=== PATIENT | female | born 1950 | race Hispanic/Latino ===

== ENCOUNTER 2024-08-07 10:10 | Emergency (ER) | payer OTHER ==
[~2024-08-07] VITALS: Ht 157.5 cm; Wt 49.0 kg
[2024-08-07 11:09] LABS: BASOPHILS # (AUTO) 0.03 K/uL (0.00-0.20); BASOPHILS % (AUTO) 0.6 % (0.0-5.0); EOSINOPHILS # (AUTO) 0.06 K/uL (0.00-0.70); EOSINOPHILS % (AUTO) 1.2 % (0.0-8.0); HEMATOCRIT 38.1 % (36-48); IMMATURE GRANULOCYTE ABSOLUTE 0.02 K/uL (0-1); LYMPHOCYTES # (AUTO) 1.4 K/uL (1.0-4.8); LYMPHOCYTES % (AUTO) 27.4 % (21.0-51.0); MEAN CORPUSCULAR HEMOGLOBIN 33.2 pg (27.0-33.0); MEAN CORPUSCULAR HGB CONC 34.1 g/dL (32.0-36.0); MEAN CORPUSCULAR VOLUME 97.4 fL (79-99); MONOCYTES # (AUTO) 0.4 K/uL (0.1-1.0); MONOCYTES % (AUTO) 8.7 % (3.0-13.0); NEUTROPHILS # (AUTO) 3.1 K/uL (1.8-7.7); NEUTROPHILS % (AUTO) 61.7 % (40.0-77.0); PLATELET COUNT (AUTO) 225 K/uL (130-400); RED BLOOD CELL COUNT(AUTO) 3.91 MIL/uL (4.00-5.50); WHITE BLOOD COUNT (AUTO) 5.1 K/uL (4.8-10.8)
[2024-08-07 11:26] LABS: CREATININE 0.7 mg/dL (0.5-1.0); POTASSIUM 4.7 mmol/L (3.5-5.1)
[2024-08-07 11:31] VITALS: BP 154/85; PULSE 77; RESP 18; TEMP 98.3; O2SAT 99
--- NOTE | 2024-08-07 12:01 | HMCIMG ---
CT HEAD WITHOUT CONTRAST INDICATION: Headache TECHNIQUE: Noncontrast axial helical CT images from the vertex through the skull base using 5 mm slice thickness without contrast material. Coronal and sagittal reconstructions were also included. Dose reduction techniques was used using integrated, automated and adaptive dose reduction exposure control. CT was performed with one or more of the following dose reduction techniques: Automated exposure control, adjustment of the mA and/or kV according to patient size, or use of iterative reconstruction technique. COMPARISON: None FINDINGS: Scattered and coalescent subcortical and periventricular white matter low attenuating areas likely represent residual of chronic small vessel arteriopathy and/or remote vascular insult. Generalized mild cerebral cortical atrophy is present.. No evidence for abnormal extra-axial fluid collections or masses. The ventricles and sulci are normal in size and configuration. No evidence for intracranial parenchymal, epidural, or subdural hemorrhage, mass effect or midline shift. The weeks-white matter differentiation is well preserved. No secondary evidence to suggest acute ischemia. Mild calcific plaque is present along the kaye of the cavernous segments of both internal carotid arteries. The brainstem and cerebellum appear normal. The visualized orbits appear unremarkable. The visible paranasal sinuses and mastoid air cells are clear. The calvarium appears normal. IMPRESSION: Chronic white matter ischemic changes, mild brain atrophy, and arteriosclerotic disease as described, without acute component.
[2024-08-07] MEDS: diazePAM 5 MG TAB PO ONE (12:19)
--- NOTE | 2024-08-07 12:25 | ERN ---
ED Note History of Present Illness Stated Complaint: EXTREME HEADACHE 1 WEEK Chief Complaint: Headache Time Seen by MD: 10:44 Dictation: 73-year-old female with a history of osteoarthritis presents to the ED for evaluation of headache onset one week ago. Patient reports nausea, but denies any vision changes, vomiting, chest pain or shortness a breath. As per patient she has been taking pain medication with no improvement and states that she was seen on July 22 by PCP given a shot for pain and was also given antibiotics for UTI, but states she is pending a urine culture. Allergies: Coded Allergies: No Known Allergies (Unverified Allergy, Unknown, 08/07/24) Home Meds Active Scripts Cyclobenzaprine HCl (Cyclobenzaprine HCl) 5 Mg Tablet, 5 MG PO DAILY for 5 Days, #5 TAB Prov:VERONICA MORA MD 08/07/24 Past Medical History Past Medical History: Hypertension Surgical History: Other Review of System Dictation Constitutional: Negative for fever,chills, and weight loss Eyes: Negative for injury, pain,redness, and discharge ENT: Negative for injury,pain or swelling Cardiovascular: Negative for chest pain, palpitations, and edema Respiratory: Negative for shortness of breath, cough, and wheezing, Abdomen/GI: Positive for nausea Negative for abdominal pain vomiting, diarrhea, and constipation Back: Negative for injury and pain : Negative for injury, bleeding and discharge MS/Extremity: Negative for injury and deformity Skin: Negative for rash, and discoloration Neuro: Positive for headache negative for weakness, numbness, tingling, and seizure Psych: Negative for suicide ideation, homicidal ideation, and hallucinations Initial Vital Sign VS Vital Signs Date Time Temp Pulse Resp B/P (MAP) Pulse Ox O2 Delivery O2 Flow Rate FiO2 08/07/24 10:38 Room Air 08/07/24 11:31 98.2 77 18 154/85 99 0 21 Physical Exam Dictation General: awake, alert, NAD Head/Face: Normocephalic, atraumatic Eyes: PERRL, EOMI, vision at baseline ENT: oral cavity clear, TMs clear, no signs of infection Neck: Trachea midline, supple, no nuchal rigidity Cardiovascular: RRR, normal S1/S2, No MRGs, no JVD Respiratory: CTAB, no respiratory distress, No rales or wheezes Abdomen: Soft, non-tender, non-distended, normal bowel sounds, no guarding or rebound. Skin: Warm, dry, normal turgor, no rash MS/Extremity: Pulses equal, no cyanosis, neurovascular intact, FROM Neuro: COAx4, GCS 15, strength 5/5, CN 2-12 intact, normal cerebellar exam, normal gait, Psych: Normal behavior, mood, and affect normal Results (Laboratory/Radiology) Laboratory/Radiology Laboratory Tests Test 08/07/24 10:27 White Blood Count 5.1 K/uL (4.8-10.8) Red Blood Count 3.91 MIL/uL (4.00-5.50) L Hemoglobin 13.0 g/dL (12.0-16.0) Hematocrit 38.1 % (36-48) Mean Corpuscular Volume 97.4 fL (79-99) Mean Corpuscular Hemoglobin 33.2 pg (27.0-33.0) H Mean Corpuscular Hemoglobin Concent 34.1 g/dL (32.0-36.0) Red Cell Distribution Width 12.0 % (11.0-15.5) Platelet Count 225 K/uL (130-400) Mean Platelet Volume 9.0 fL (7.5-10.5) Immature Granulocyte % (Auto) 0.4 % (0-1) Neutrophils (%) (Auto) 61.7 % (40.0-77.0) Lymphocytes (%) (Auto) 27.4 % (21.0-51.0) Monocytes (%) (Auto) 8.7 % (3.0-13.0) Eosinophils (%) (Auto) 1.2 % (0.0-8.0) Basophils (%) (Auto) 0.6 % (0.0-5.0) Neutrophils # (Auto) 3.1 K/uL (1.8-7.7) Lymphocytes # (Auto) 1.4 K/uL (1.0-4.8) Monocytes # (Auto) 0.4 K/uL (0.1-1.0) Eosinophils # (Auto) 0.06 K/uL (0.00-0.70) Basophils # (Auto) 0.03 K/uL (0.00-0.20) Absolute Immature Granulocyte (auto 0.02 K/uL (0-1) Nucleated Red Blood Cells 0.0 % (0.0-0.19) Sodium Level 133 mmol/L (136-145) L Potassium Level 4.7 mmol/L (3.5-5.1) Chloride Level 96 mmol/L (101-111) L Carbon Dioxide Level 29 mmol/L (21-32) Blood Urea Nitrogen 11 mg/dL (7-18) Creatinine 0.7 mg/dL (0.5-1.0) Glomerular Filtration Rate Calc 91 mL/min (>90) Random Glucose 105 mg/dL (70-105) Total Calcium 9.2 mg/dL (8.5-10.1) Troponin I High Sensitivity < 4 ng/L (4-50) L Labs Reviewed?: Yes EKG Comment: EKG 08/07/2024 time 11:37 a.m. ventricular rate 82, DE 137, QRS D 72, QT 372. Sinus rhythm. No STEMI CT Scan Comment: REASON: headache ORDERING PHYSICIAN: VERONICA MORA MD PROCEDURE: HEAD WO - CT HEAD/BRAIN W/O CONTRAST CT HEAD WITHOUT CONTRAST INDICATION: Headache TECHNIQUE: Noncontrast axial helical CT images from the vertex through the skull base using 5 mm slice thickness without contrast material. Coronal and sagittal reconstructions were also included. Dose reduction techniques was used using integrated, automated and adaptive dose reduction exposure control. CT was performed with one or more of the following dose reduction techniques: Automated exposure control, adjustment of the mA and/or kV according to patient size, or use of iterative reconstruction technique. COMPARISON: None FINDINGS: Scattered and coalescent subcortical and periventricular white matter low attenuating areas likely represent residual of chronic small vessel arteriopathy and/or remote vascular insult. Generalized mild cerebral cortical atrophy is present.. No evidence for abnormal extra-axial fluid collections or masses. The ventricles and sulci are normal in size and configuration. No evidence for intracranial parenchymal, epidural, or subdural hemorrhage, mass effect or midline shift. The weeks-white matter differentiation is well preserved. No secondary evidence to suggest acute ischemia. Mild calcific plaque is present along the kaye of the cavernous segments of both internal carotid arteries. The brainstem and cerebellum appear normal. The visualized orbits appear unremarkable. The visible paranasal sinuses and mastoid air cells are clear. The calvarium appears normal. IMPRESSION: Chronic white matter ischemic changes, mild brain atrophy, and arteriosclerotic disease as described, without acute component. DICTATED BY: ANKIT BROTHERS MD DATE: 08/07/24 1159 ED Course ED Course Orders Procedure Category Date Status Time 12 Lead Ekg Tracing- EKG 08/07/24 Logged Technical 10:47 Cbc With Differential LAB 08/07/24 Complete 10:47 Basic Metabolic Panel LAB 08/07/24 Complete 10:47 Troponin I High LAB 08/07/24 Complete Sensitivity 10:47 Ct Head/Brain W/O CT 08/07/24 Resulted Contrast 11:15 Diazepam 5mg Tab PHA 08/07/24 Complete (Valium 5 Mg Tab) 11:30 Cerv Spine 2-3vws RAD 08/07/24 Resulted 12:28 Current Medications Medications (Trade) Dose Ordered Sig/Johny Route PRN Reason Start Time Stop Time Status Last Admin Dose Admin Diazepam (VALium 5 mg TAB) 5 mg ONCE ONCE PO 08/07/24 11:30 08/07/24 11:31 DC 08/07/24 12:19 Vital Signs Date Time Temp Pulse Resp B/P (MAP) Pulse Ox O2 Delivery O2 Flow Rate FiO2 08/07/24 11:31 98.2 77 18 154/85 99 Room Air* 0 21 08/07/24 10:38 Room Air Medical Decision Making MDM MDM: Differential diagnosis: Headache, migraine, osteoarthritis Risk of complication and/or morbidity or mortality of patient management: None Medications-Per medication reconciliation Need for hospitalization: Patient does not meet criteria for hospitalization. Need for emergency major/minor surgery: No There are no social concerns with this patient. Prescription drug management Prescriptions will include symptomatic care I independently interpreted the test that were performed, results were reviewed by me and considered findings on radiology if ordered. DX & DISP Disposition: Discharge Departure Impression: Primary Impression: Acute headache Condition: Stable Scripts Cyclobenzaprine HCl (Cyclobenzaprine HCl) 5 Mg Tablet 5 MG PO DAILY for 5 Days, #5 TAB Prov: VERONICA MORA MD 08/07/24 VERONICA MORA MD Aug 07, 2024 12:25
--- NOTE | 2024-08-07 14:30 | HMCIMG ---
CERVICAL SPINE RADIOGRAPHS -4 VIEWS INDICATION: Pain COMPARISON: None FINDINGS: Normal lordosis is maintained. No acute fracture or malalignment identified. Prevertebral soft tissues are not swollen. The atlanto-dens interval is within normal limits for patient's age. Vertebral body heights are within normal limits. Multilevel mild anterior endplate spurring spares the C2-C3 level. Mild to moderate disc height loss at the C5-C6 level and mild at the C4-C5 level. Multilevel mild facet disease. Visible lung apices are clear. IMPRESSION: No acute fracture or subluxation identified.
[2024-08-07] MEDS ORDERED: CYCL5TAB3 PO (15:23)
--- NOTE | 2024-08-08 06:37 | EKG ---
[facility] Test Date: 2024-08-07 Test Time: 11:37:16 Pat Name: SURJIT KAMARA Department: ED Room: Gender: F [employer] Technician: [birth year] : 1950 Requested By: VERONICA MORA Order Number: [id number] Reading MD: Tayler Steele Measurements Intervals [place] Rate: 82 P: 72 ND: 137 QRS: 67 QRSD: 72 T: 38 QT: 372 QTc: 434 Interpretive Statements Sinus rhythm No previous ECG available for comparison Electronically Signed On 08-09-2024 09:33:02 CDT by Tayler Steele Please click the below link to view image of tracing.
== END 2024-08-07 15:18 | disposition home or self-care (01) ==
LOC: EDH 10:10
DX: R51.9 Headache, unspecified (principal); R11.0 Nausea; I10 Essential (primary) hypertension; Z79.899 Other long term (current) drug therapy
CPT/HCPCS: 36415; 70450; 72040; 80048; 84484; 85025; 93005; 99284; 99285